=== PATIENT | female | born 1975 ===

== ENCOUNTER 2022-07-14 13:36 | Outpatient (CLI) | payer OTHER | END 2022-07-14 13:40 | disposition home or self-care (01) | LOC: RAD 13:36 | PROVIDERS: ATTEND Orthopaedic Surgery | DX: M25.511 Pain in right shoulder (principal) ==

== ENCOUNTER 2022-07-17 10:46 | Outpatient (CLI) | payer OTHER | END 2022-07-17 12:24 | disposition home or self-care (01) | LOC: LAB 10:46 | PROVIDERS: ATTEND Radiology Diagnostic Radiology | DX: M75.41 Impingement syndrome of right shoulder (principal) ==

== ENCOUNTER 2022-07-17 11:47 | Outpatient (CLI) | payer OTHER | END 2022-07-17 15:13 | disposition home or self-care (01) | LOC: MRI 11:47 | PROVIDERS: ATTEND Orthopaedic Surgery | DX: M75.41 Impingement syndrome of right shoulder (principal); M75.31 Calcific tendinitis of right shoulder | CPT/HCPCS: 73222 ==